=== PATIENT | female | born 1970 | race Asian ===

== ENCOUNTER 2016-03-08 16:18 | Emergency (ER) | payer OTHER ==
[~2016-03-08] VITALS: Ht 154.9 cm; Wt 108.0 kg
[2016-03-08 18:15] LABS: PLATELET COUNT 382 K/uL (152-353)
[2016-03-08 19:09] LABS: SODIUM 134 mmol/L (136-145)
[2016-03-08 19:51] LABS: POTASSIUM 4.5 mmol/L (3.6-5.2)
[2016-03-08 20:25] VITALS: BP 133/86; TEMP 98.6
== END 2016-03-08 21:58 | disposition home or self-care (01) ==
LOC: ED 16:18
DX: B96.81 Helicobacter pylori [H. pylori] as the cause of diseases classified elsewhere (principal); K29.70 Gastritis, unspecified, without bleeding; E01.0 Iodine-deficiency related diffuse (endemic) goiter
CPT/HCPCS: 36415; 80053; 84443; 85027; 86318; 96365; 99284

== ENCOUNTER 2016-11-03 11:22 | Outpatient (CLI) | payer OTHER | END 2016-11-03 12:30 | disposition home or self-care (01) | LOC: MAMMO 11:22 | DX: Z12.31 Encounter for screening mammogram for malignant neoplasm of breast (principal) ==

== ENCOUNTER 2017-12-11 11:15 | Outpatient (CLI) | payer OTHER | END 2017-12-11 22:42 | disposition home or self-care (01) | LOC: MRI 11:15 | DX: M25.462 Effusion, left knee (principal) ==

== ENCOUNTER 2018-01-28 14:55 | Outpatient (CLI) | payer OTHER | END 2018-01-28 22:35 | disposition home or self-care (01) | LOC: MAMMO 14:55 | DX: Z12.31 Encounter for screening mammogram for malignant neoplasm of breast (principal) ==

== ENCOUNTER 2019-02-06 10:59 | Outpatient (CLI) | payer OTHER | END 2019-02-06 19:48 | disposition home or self-care (01) | LOC: MAMMO 10:59 | DX: Z12.31 Encounter for screening mammogram for malignant neoplasm of breast (principal) ==

== ENCOUNTER 2019-02-07 16:40 | Emergency (ER) | payer OTHER ==
[~2019-02-07] VITALS: Ht 152.4 cm; Wt 101.6 kg
[2019-02-07 16:58] VITALS: TEMP 98.4
[2019-02-07 17:53] LABS: PLATELET COUNT 330 K/uL (152-353)
[2019-02-07 20:39] VITALS: BP 153/85
== END 2019-02-07 20:42 | disposition home or self-care (01) ==
LOC: ED 16:40
PROVIDERS: Family Medicine
DX: R79.89 Other specified abnormal findings of blood chemistry (principal); M79.604 Pain in right leg
CPT/HCPCS: 36415; 80053; 81000; 84550; 85027; 85379; 99283; J3490

== ENCOUNTER 2019-02-19 10:22 | Outpatient (CLI) | payer OTHER | END 2019-02-19 19:32 | disposition home or self-care (01) | LOC: RAD 10:22 | DX: M25.562 Pain in left knee (principal); M25.561 Pain in right knee ==

== ENCOUNTER 2019-11-11 11:01 | Outpatient (CLI) | payer OTHER | END 2019-11-11 19:21 | disposition home or self-care (01) | LOC: MRI 11:01 | DX: M25.461 Effusion, right knee (principal) ==

== ENCOUNTER 2020-02-12 13:51 | Outpatient (CLI) | payer OTHER | END 2020-02-12 21:11 | disposition home or self-care (01) | LOC: MAMMO 13:51 | PROVIDERS: ATTEND Specialist | DX: Z12.31 Encounter for screening mammogram for malignant neoplasm of breast (principal) ==

== ENCOUNTER 2020-06-16 09:50 | Day surgery (SDC) | payer OTHER ==
[2020-06-09 11:04] LABS: PLATELET COUNT 349 K/uL (152-353)
== END 2020-06-16 12:50 | disposition home or self-care (01) ==
LOC: OR 09:50
PROVIDERS: ATTEND Internal Medicine Gastroenterology
PROC: 0DBL8ZZ Excision of Transverse Colon, Via Natural or Artificial Opening Endoscopic (ICD-10-PCS; principal; 2020-06-16)
DX: D12.3 Benign neoplasm of transverse colon (principal); K57.30 Diverticulosis of large intestine without perforation or abscess without bleeding; K64.8 Other hemorrhoids; Z12.11 Encounter for screening for malignant neoplasm of colon; Z20.822 Contact with and (suspected) exposure to COVID-19
CPT/HCPCS: 80053; 85027; 87635; J2704; U0003

== ENCOUNTER 2021-02-17 08:22 | Outpatient (CLI) | payer OTHER | END 2021-02-17 19:21 | disposition home or self-care (01) | LOC: MAMMO 08:22 | PROVIDERS: ATTEND Specialist | DX: Z12.31 Encounter for screening mammogram for malignant neoplasm of breast (principal) ==

== ENCOUNTER 2022-03-08 07:44 | Outpatient (CLI) | payer OTHER | END 2022-03-08 18:58 | disposition home or self-care (01) | LOC: MAMMO 07:44 | PROVIDERS: ATTEND Specialist | DX: Z12.31 Encounter for screening mammogram for malignant neoplasm of breast (principal) ==